=== PATIENT | female | born 1980 | race Caucasian/White ===

== ENCOUNTER 2019-01-04 08:05 | Day surgery (SDC) | payer OTHER ==
[2019-01-04] MEDS ORDERED: Ringers Lactate 1,000 ML IV ONE ×3 (08:19→08:52)
[2019-01-04] MEDS ORDERED: PROPOFOL 200 MG/20 ML VIAL IV ONE (08:22)
[2019-01-04] MEDS ORDERED: FENTANYL CITR 100 MCG/2 ML ONE ×4 (08:24→15:45)
[2019-01-04] MEDS ORDERED: SCOPOLAMINE HYDROBROMIDE PATCH TD ONE (08:24)
[2019-01-04] MEDS ORDERED: CEFAZOLIN/SWI 1gm 1 GM/10 ML SYR ONE (08:24)
[2019-01-04] MEDS ORDERED: ROCURONIUM 50 MG/5 ML VIAL IV ONE ×2 (08:26→10:54)
[2019-01-04] MEDS ORDERED: LIDOCAINE 2% MPF 5 ML VIAL ONE (08:26)
[2019-01-04] MEDS ORDERED: ONDANSETRON 4 MG/2 ML VIAL ONE ×2 (08:26→17:25)
[2019-01-04] MEDS ORDERED: MIDAZOLAM HCL 2 MG/2 ML INJ ONE (08:26)
[2019-01-04 08:49] LABS: Specific Gravity 1.025 (1.005-1.030); Urine Appearance CLEAR; Urine Bilirubin NEGATIVE (NEG); Urine Blood 3+ (NEG); Urine Color YELLOW; Urine Glucose NEGATIVE (NEG); Urine Protein NEGATIVE (NEG); Urine Specific Gravity 1.025 (1.005-1.030); Urine pH 6.5 (5.0-7.0)
[2019-01-04 08:50] LABS: Urine Microscopic Reflex ORDER UMIC
[2019-01-04] MEDS ORDERED: NS 0.9% VIAL 20 ML ONE (08:50)
[2019-01-04] MEDS ORDERED: GENTAMICIN SULF 80 MG/2ML INJ ONE (08:50)
[2019-01-04] MEDS ORDERED: EPINEPHRINE/PF 1 MG/ML AMP ONE ×2 (08:50→13:41)
[2019-01-04] MEDS ORDERED: CEFAZOLIN SODIUM 1 GM/VIAL ONE (08:50)
[2019-01-04] MEDS ORDERED: Mastisol Adhesive Liq ONE ×2 (08:51→14:25)
[2019-01-04] MEDS ORDERED: NA CHLORIDE 0.9% 1,000 ML ONE (08:51)
[2019-01-04] MEDS ORDERED: BACITRACIN 50000 UNIT VIAL ONE (08:52)
[2019-01-04 08:58] LABS: Urine Bacteria <20 /HPF (<20); Urine Culture Reflex Order NOT NEEDED
[2019-01-04 08:59] LABS: Urine Mucus MOD /HPF (NONE SEEN)
[2019-01-04] MEDS ORDERED: DEXAMETHASONE 10 MG/ML VIAL ONE (10:01)
[2019-01-04] MEDS ORDERED: EPHEDRINE SULF 50 MG/ML VIAL ONE (10:54)
[2019-01-04] MEDS ORDERED: FENTANYL CITR 250 MCG/5 ML ONE (14:12)
[2019-01-04] MEDS ORDERED: MEPERIDINE HCL 25 MG/0.5 ML ONE (14:12)
[2019-01-04] MEDS ORDERED: KETOROLAC 30 MG/ML INJ ONE (14:34)
[2019-01-04] MEDS ORDERED: NEOSTIGMINE 1 MG/ML -10 ML VIAL ONE (14:44)
[2019-01-04] MEDS ORDERED: GLYCOPYRROLATE 0.2 MG/ML SYR ONE (14:44)
[2019-01-04] MEDS: HYDROMORPHONE HCL 1 MG/ML INJ ONE ×4 (15:09→15:29)
[2019-01-04] MEDS ORDERED: PROMETHAZINE 25 MG/ML VIAL ONE (15:19)
[2019-01-04] MEDS ORDERED: CODEINE 30MG/APAP 300MG TAB ONE (16:42)
--- NOTE | 2019-01-05 01:51 | OP ---
Date of Procedure: 01/04/2019 Surgeon: Rito Rubio MD Modern Languages Professor: Doyle. Preoperative Diagnoses: Breast descent, asymmetry, and lipodystrophy of the flanks. Postoperative Diagnoses: Breast descent, asymmetry, and lipodystrophy of the flanks. Procedure Performed: Breast lift with minor reduction of the right, liposuction of the flanks, 1000 right, 1000 left. Anesthesia: General. Procedure In Detail: After satisfactory induction of general anesthesia, chest was prepped with Dura Prep. Dry sterile drapes were applied in the usual manner. A 45-mm template was used to outline the right and left areolas. Then, the transverse and curvilinear incisions were made. The intervening skin was de-epithelialized with EpiCut or dermabrader. Then, the cephalad incision was made transver sely, full-thickness, with scalpel. The flaps were elevated 1.2 cm thick and elevated towards the st ernum, clavicle, anterior and axillary line . Then, the inferior incision was made. De-ep ithelialized tissue was forming a cone. Prior to conization, excess fat in the inferior lateral was excised. Electrocautery was used for hemostasis and closure of the cone was performed with 2-0 PDS s utures on both sides. Straps were elevated at 12 o'clock, 1:30, and 3 o'clock position on the right breast, mirror image on the left. After the straps were elevated, then they were woven in and out of pectoralis major muscle, back to the base of the cone, back to the pectoralis major and then subcuta neously tied themselves back to the base of the cone. This was done for the 12 o'clock and 1:30 stra p on the right side, mirror image on the left. The 3 o'clock strap was sewn over the sternum at 3 o' clock position with 2-0 Ethibond. After this was done, wounds were carefully stapled shut. Excess s kin and tissue were marked out and the patient then had the revision performed with excessive skin an d fat removed. A 10 ROB was brought out the axilla and sewn in place with 2-0 silk. Wounds were irri gated with antibiotic solution and closed in layers with 3-0 Vicryl, subcu with 3-0 PDS running subcu ticular, tied in the vertical meridian of the breast. Both breasts were closed simultaneously and th en the patient was sat up. Site for new nipple-areolar complex was marked out with a 45 template. T issue was excised. Nipples were delivered and sewn with interrupted 4-0 PDS followed by 4-0 PDS runn ing subcuticular. Dressings consisted of tincture of benzoin, Steri-Strips. Attention was turned to the abdomen. Abdomen was then re-prepped. used and then the inferior incision was made in the right anterior superior iliac spine with a 15-blade, and then amount of 1000 cc in right flank with 1000 cc in the left flank. Then, a 5-mm cannula was used to aspirate 1000 cc out of each flank. The wounds were then closed with 4-0 PDS and then tincture of benzoin, Steri-Strips. A bdominal binder was placed on the abdomen while the breasts had 5x5s, fluffs, and Juan C wraps applied. The patient tolerated the procedure well and returned to recovery room. SARAY/STAR Voice ID: [id number] Report ID: [id number]
== END 2019-01-04 17:44 | disposition home or self-care (01) ==
LOC: OR 08:05
PROVIDERS: ATTEND Specialist
PROC: 0J083ZZ Alteration of Abdomen Subcutaneous Tissue and Fascia, Percutaneous Approach (ICD-10-PCS; 2019-01-04)
PROC: 0H0V0ZZ Alteration of Bilateral Breast, Open Approach (ICD-10-PCS; principal; 2019-01-04 09:00)
PROC: 0HSV0ZZ Reposition Bilateral Breast, Open Approach (ICD-10-PCS; 2019-01-04 09:00)
DX: N64.81 Ptosis of breast (principal); N64.89 Other specified disorders of breast; L98.7 Excessive and redundant skin and subcutaneous tissue; E65 Localized adiposity
CPT/HCPCS: 81003; 81015; 81025; 88305; J0171; J0690; J1100; J1170; J1580; J2175; J2250; J2405; J2550; J2704; J2710; J3010; J7030